=== PATIENT | female | born 1995 | race African-American/Black ===

== ENCOUNTER 2020-11-27 12:04 | Emergency (ER) | payer MEDICAID, OTHER ==
[~2020-11-27] VITALS: Ht 175.3 cm; Wt 63.5 kg
[2020-11-27 12:11] VITALS: BP 132/84
[2020-11-27] MEDS ORDERED: ACETAMINOPHEN 325 MG TAB PO ONE (12:45)
== END 2020-11-27 12:44 | disposition home or self-care (01) ==
LOC: ER 12:04 → EDBD 12:04 → ER 12:43
DX: O9A.211 Injury, poisoning and certain other consequences of external causes complicating pregnancy, first trimester (principal); S40.021A Contusion of right upper arm, initial encounter; S70.01XA Contusion of right hip, initial encounter; Z3A.12 12 weeks gestation of pregnancy; V49.49XA Driver injured in collision with other motor vehicles in traffic accident, initial encounter; Y93.89 Activity, other specified; Y92.488 Other paved roadways as the place of occurrence of the external cause; Y99.8 Other external cause status